=== PATIENT | male | born 1940 | race Caucasian/White ===

== ENCOUNTER 2018-12-21 08:11 | Outpatient (CLI) | payer MEDICARE, OTHER ==
[~2018-12-21] VITALS: Ht 182.9 cm; Wt 113.5 kg
[2018-12-21] MEDS ORDERED: TRAM50TA2 PO (13:21)
[2018-12-21] MEDS ORDERED: UMEC62.5 IH (13:21)
[2018-12-21] MEDS ORDERED: INSU300I SQ (13:21)
[2018-12-21] MEDS ORDERED: POLY119P5 PO (13:21)
[2018-12-21] MEDS ORDERED: GLIM1TAB PO (13:21)
[2018-12-21] MEDS ORDERED: RANI150T90 PO (13:21)
[2018-12-21] MEDS ORDERED: PRD10T PO (13:21)
[2018-12-21] MEDS ORDERED: TAMS0.4C98 PO (13:21)
[2018-12-21] MEDS ORDERED: LEVO175T5 PO (13:21)
[2018-12-21] MEDS ORDERED: SERT50TA2 PO (13:21)
[2018-12-21] MEDS ORDERED: CLOP75TA69 PO (13:21)
[2018-12-21] MEDS ORDERED: GEMF600T PO (13:21)
[2018-12-21] MEDS ORDERED: OMG1KC PO (13:21)
[2018-12-21] MEDS ORDERED: CARV6.25 PO (13:21)
[2018-12-21] MEDS ORDERED: BUDE10.2 IH (13:21)
[2018-12-21] MEDS ORDERED: MELA1TAB20 PO (13:21)
[2018-12-21] MEDS ORDERED: CLON0.5T13 PO (13:21)
== END 2018-12-21 13:30 | disposition home or self-care (01) ==
LOC: PREOP 08:11
PROVIDERS: ATTEND Orthopaedic Surgery Orthopaedic Surgery of the Spine
DX: Z01.818 Encounter for other preprocedural examination (principal)

== ENCOUNTER 2019-01-01 06:39 | Day surgery (SDC) | payer MEDICARE, OTHER ==
[2019-01-01] VITALS (13 sets, daily range): BP systolic 89–139; BP diastolic 59–78
[~2019-01-01] VITALS: Ht 182.9 cm; Wt 113.5 kg
[~2019-01-01 06:39] MED LIST: BUDE10.2 IH; CARV6.25 PO; CLON0.5T13 PO; CLOP75TA69 PO; GEMF600T PO; GLIM1TAB PO; INSU300I SQ; LEVO175T5 PO; MELA1TAB20 PO; OMG1KC PO; POLY119P5 PO; PRD10T PO; RANI150T90 PO; SERT50TA2 PO; TAMS0.4C98 PO; TRAM50TA2 PO; UMEC62.5 IH
[2019-01-01] MEDS ORDERED: LACTATED RINGERS 1,000 ML IV PRN (06:54)
[2019-01-01] MEDS ORDERED: ceFAZolin 2 GM/50 ML NS 50 ML IV ONE (07:00)
[2019-01-01] MEDS ORDERED: VANCOMYCIN 1000 MG/VIAL ONE (07:13)
[2019-01-01] MEDS ORDERED: GENTAMICIN 40 MG/ML 2 ML INJ SDV ONE (07:13)
[2019-01-01] MEDS ORDERED: BUP/EPI 0.25% 1:200,000 (MARCAINE) 10 ML VIAL IJ ONE (07:14)
--- NOTE | 2019-01-01 07:30 | Progress Note-Pre Operative ---
Pre-Operative Progress Note H&P Reviewed The H&P was reviewed, patient examined and no changes noted. Date Seen by Provider: Jan 01, 2019 Time Seen by Provider: 07:30 Date H&P Reviewed: Jan 01, 2019 Time H&P Reviewed: 07:30 Pre-Operative Diagnosis: Chronic Lumbago, radiculopathy MIKE MORALES MD Jan 01, 2019 07:30
[2019-01-01] MEDS ORDERED: RT-ALBUTEROL/IPRATROPIUM 3 ML (DUONEB) VIAL ONE (07:48)
[2019-01-01] MEDS ORDERED: LIDOCAINE PF 2% 5 ML (XYLOCAINE) VIAL ONE (07:56)
[2019-01-01] MEDS ORDERED: DEXMEDETOMIDINE 200 MCG/2 ML (PRECEDEX) VIAL IV ONE (07:56)
[2019-01-01] MEDS ORDERED: proPOfol 200 MG/20 ML (DIPRIVAN) VIAL IV ONE (07:56)
[2019-01-01] MEDS ORDERED: SEVOFLURANE (ULTANE) 15 ML INHAL SOLN ONE ×2 (07:56→11:02)
[2019-01-01] MEDS ORDERED: fentaNYL INJECTION 100 MCG/2 ML AMP ONE ×2 (07:57→10:03)
[2019-01-01] MEDS ORDERED: MIDAZOLAM 2 MG/2 ML (VERSED) VIAL ONE (07:57)
[2019-01-01] MEDS ORDERED: SUCCINYLCHOLINE INJ 100 MG/5 ML SYR ONE (07:58)
[2019-01-01] MEDS ORDERED: RT-ALBUTEROL/IPRATROPIUM 3 ML (DUONEB) VIAL INH ONE (08:00)
[2019-01-01] MEDS ORDERED: BIMA2.5D4 OU (08:01)
[2019-01-01 08:04] LABS: BASOPHILS # (AUTO) 0.1 10^3/uL (0.0-0.1); BASOPHILS % (AUTO) 0 % (0-10); EOSINOPHILS # (AUTO) 0.2 10^3/uL (0.0-0.3); EOSINOPHILS % (AUTO) 2 % (0-10); HEMATOCRIT 40 % (40-54); HEMOGLOBIN 13.2 G/DL (13.3-17.7); LYMPHOCYTES % (AUTO) 18 % (12-44); MEAN CORPUSCULAR HEMOGLOBIN 31 PG (25-34); MEAN CORPUSCULAR HGB CONC 33 G/DL (32-36); MEAN CORPUSCULAR VOLUME 94 FL (80-99); MEAN PLATELET VOLUME 12.2 FL (7.4-10.4); MONOCYTES # (AUTO) 1.6 X 10^3 (0.0-1.0); MONOCYTES % (AUTO) 14 % (0-12); NEUTROPHILS # (AUTO) 7.6 X 10^3 (1.8-7.8); NEUTROPHILS % (AUTO) 67 % (42-75); PLATELET COUNT 213 10^3/uL (130-400); RED CELL DISTRIBUTION WIDTH 12.9 % (10.0-14.5); WHITE BLOOD COUNT 11.5 10^3/uL (4.3-11.0)
[2019-01-01] MEDS ORDERED: NS (IVPB) 100 ML ONE (08:04)
[2019-01-01 08:18] LABS: ALBUMIN 4.3 GM/DL (3.2-4.5); BILIRUBIN,TOTAL 0.5 MG/DL (0.1-1.0); CALCIUM 9.7 MG/DL (8.5-10.1); CREATININE SERUM 1.72 MG/DL (0.60-1.30); POTASSIUM 4.2 MMOL/L (3.6-5.0); TOTAL PROTEIN 7.4 GM/DL (6.4-8.2)
[2019-01-01] MEDS ORDERED: ROCURONIUM 10 MG/ML 5 ML SYRINGE IV ONE (09:48)
--- NOTE | 2019-01-01 10:31 | Progress Note-Post Operative ---
Post-Operative Progess Note Surgeon (s)/Creative Engagement Director (s) Surgeon MIKE MORALES MD Creative Engagement Director: JUDAH Escobedo Pre-Operative Diagnosis Chronic Lumbago, radiculopathy Post-Operative Diagnosis Same Procedure & Operative Findings Date of Procedure 01/01/19 Procedure Performed/Findings Placement of permanent spinal cord stimulator via laminectomy Anesthesia Type GETA Estimated Blood Loss Estimated blood loss (mL): min Specimens/Packing Specimens Removed none MIKE MORALES MD Jan 01, 2019 10:31
[2019-01-01] MEDS ORDERED: fentaNYL INJECTION 100 MCG/2 ML AMP IVP ONE (11:15)
[2019-01-01] MEDS ORDERED: ONDANSETRON 4 MG/2 ML (SDV) Z0FRAN IVP PRN (11:15)
--- NOTE | 2019-01-01 11:22 | Diagnostic Imaging Report ---
INDICATION: Fluoroscopy for spinal cord stimulator placement. FINDINGS: Fluoroscopic guidance was provided during a spinal cord stimulation placement. 20 seconds of fluoroscopic time was utilized. A paddle stimulator overlies the midline of the lower thoracic spine. IMPRESSION: Fluoroscopy during spinal cord stimulator placement. Dictated by: Dictated on workstation # [id number]
--- NOTE | 2019-01-01 11:50 | NUR ---
TO AMB SURG FROM PAR PER CART. AWAKE, BUT DROWSY. ON O2 AT 5L PER NC PER HOME USE. C/O MID UPPER BACK SURGICAL SITE PAIN RATED 8, BUT BACK TO SLEEP QUICKLY. B/P 103/74. ICE PACKS TO MID UPPER BACK AND LEFT LOWER BACK SURGICAL SITES. DRESSINGS D/I TO SITES.
--- NOTE | 2019-01-01 12:20 | NUR ---
NO CHANGE IN SITE OR PAIN ASSESSMENTS, REMAINS DROWSY. B/P 99/64.
--- NOTE | 2019-01-01 12:52 | Anesthesia-General Post-Op ---
General Patient Condition Mental Status/LOC: Same as Preop Cardiovascular: Satisfactory Nausea/Vomiting: Absent Respiratory: Satisfactory Pain: Controlled Complications: Absent Post Op Complications Complications None Follow Up Care/Instructions Patient Instructions None needed. Anesthesia/Patient Condition Patient Condition Patient is doing well, no complaints, stable vital signs, no apparent adverse anesthesia problems. No complications reported per nursing. GABY HERNANDEZ CRNA Jan 01, 2019 12:52
--- NOTE | 2019-01-01 13:16 | NUR ---
ALERT, B/P 123/64. TRAMADOL 50 MG, ONE TAB, GIVEN PO FOR C/O SURGICAL SITE PAIN RATED 8
--- NOTE | 2019-01-01 13:50 | NUR ---
REPORTS SURGICAL SITE PAIN EASING SOME, RATES AT 5-6.
--- NOTE | 2019-01-01 14:15 | NUR ---
REQUESTING DISMISSAL. ALERT, UP IN ROOM WITH ASSIST TO DRESS FOR HOME.
--- NOTE | 2019-01-01 16:50 | OPERATIVE REPORT ---
DATE OF SERVICE: 01/01/2019 PREOPERATIVE DIAGNOSES: Chronic lumbago and lumbar radiculopathy. POSTOPERATIVE DIAGNOSES: Chronic lumbago and lumbar radiculopathy. PROCEDURE PERFORMED: 1. T10-T11 level laminectomy for placement of paddle electrode for spinal cord stimulation. 2. Left-sided battery placement for spinal cord stimulator. DATE AND TIME OF SURGERY: Please see anesthesia record. IMPLANTS USED: [employer] Proclaim XR battery and [employer] Tripole paddle lead. SURGEON: Mike Mercado MD BRADDISHER: THERESA Escobedo. ROLE OF SLIMER: Aid in traction procedure, aid in implantation, instrumentation and wound closure. ANESTHESIA: General endotracheal. ESTIMATED BLOOD LOSS: Minimal. INTRAVENOUS FLUIDS: Please see anesthesia record. ANTIBIOTICS: Ancef. COMPLICATIONS: None. INDICATIONS FOR PROCEDURE: The patient is a 78-year-old male, previous positive trial, desires permanent placement. NEUROMONITORING: Standard intraoperative neuromonitoring carried out by means of real time continuous high quality bidirectional mode, audio and visual communication to both the sales technician and surgeon by Dr. Jennings was performed. SSEPS, EMGs, TOFs were carried out continuously throughout the procedure stable. DESCRIPTION OF PROCEDURE: The patient was taken to the preoperative holding area and brought back to the operative suite. After adequate induction of general anesthetic, carefully turned prone on Nilesh table, careful padding torso, extremities sterilely prepped and draped posterior thoracic and lumbar spine to check a midline where the T10-11 level was localized and a T10-11 level laminotomy was created. A Tripole lead was then passed into the epidural space into a midline position assured on imaging to be overlying the level where he had his positive relief during his trial. It was anchored into position at the lamina level. Fascia was then closed and it was anchored again at the fascial level, strain relief loops were created. It was tunneled to his left posterior hip buttock region where he desired to have his battery placed. He was connected to a Proclaim 5 battery. System was functioning well. Wounds were irrigated, closed in layers. Final imaging was obtained and the patient was transferred to recovery room in stable condition, having tolerated the procedure well. Job ID: [id number] DocumentID: [id number] Dictated Date: 01/01/2019 10:33:47 After School Coordinator Date: 01/01/2019 16:49:41 Dictated By: MIKE MERCADO MD MTDD
== END 2019-01-01 14:15 | disposition home or self-care (01) ==
LOC: SDC 06:39
PROVIDERS: ATTEND Orthopaedic Surgery Orthopaedic Surgery of the Spine
DX: M54.16 Radiculopathy, lumbar region (principal); I25.10 Atherosclerotic heart disease of native coronary artery without angina pectoris; I11.9 Hypertensive heart disease without heart failure; E11.40 Type 2 diabetes mellitus with diabetic neuropathy, unspecified; F32.9 Major depressive disorder, single episode, unspecified; E03.9 Hypothyroidism, unspecified; E66.01 Morbid (severe) obesity due to excess calories; N28.9 Disorder of kidney and ureter, unspecified; J44.9 Chronic obstructive pulmonary disease, unspecified; E78.00 Pure hypercholesterolemia, unspecified; K21.9 Gastro-esophageal reflux disease without esophagitis; F17.210 Nicotine dependence, cigarettes, uncomplicated; Z95.1 Presence of aortocoronary bypass graft; Z68.33 Body mass index [BMI] 33.0-33.9, adult; Z79.899 Other long term (current) drug therapy; Z86.79 Personal history of other diseases of the circulatory system; Z80.9 Family history of malignant neoplasm, unspecified; Z88.5 Allergy status to narcotic agent; Z88.8 Allergy status to other drugs, medicaments and biological substances; Z87.898 Personal history of other specified conditions; Z79.02 Long term (current) use of antithrombotics/antiplatelets; Z79.4 Long term (current) use of insulin
CPT/HCPCS: 36415; 80053; 82962; 85025; 87081; 94640